=== PATIENT | female | born 1960 | race African-American/Black ===

== ENCOUNTER 2024-10-10 12:02 | Inpatient (IN) | payer MEDICAID, OTHER ==
[~2024-10-10] VITALS: Ht 172.7 cm; Wt 74.8 kg
[2024-10-10 12:12] VITALS: O2SAT 98
[2024-10-10] MEDS: SODIUM CHLORIDE 0.9% 1,000 ML IV ONE (12:58)
[2024-10-10 13:17] LABS: BASOPHILS % 0.2 % (0.0-2.0); EOSINOPHILS % 0.1 % (0.0-5.0); HEMATOCRIT. 32.7 % (36.0-48.0); HEMOGLOBIN. 10.9 g/dL (12.0-16.0); LYMPHOCYTES % 14.5 % (20.0-50.0); MEAN PLATELET VOLUME 8.8 fl (7.4-10.4); MONOCYTES % 7.9 % (2.0-8.0); NEUTROPHILS % 77.3 % (40.0-76.0); PLATELET 233 x1000/uL (130-400); RED BLOOD CELL COUNT 3.69 mill/uL (4.2-5.4); RED CELL DISTRIBUTION WIDTH 16.9 % (11.6-14.6)
[2024-10-10] MEDS: SODIUM CHLORIDE 0.9% (SEPSIS BOLUS) IV ONE (13:56)
[2024-10-10] MEDS: CEFTRIAXONE 1GM/50ML 50 ML IV SCH (13:56)
[2024-10-10] MEDS: AZITHROMYCIN 500MG/250ML 250 ML IV SCH (14:52)
[2024-10-10 15:39] LABS: CREATININE 1.9 mg/dL (0.6-1.0)
[2024-10-10 15:40] LABS: ETHANOL BLOOD < 10 mg/dL (<10); UREA NITROGEN BLOOD 31 mg/dL (9-23)
[2024-10-10 15:41] LABS: ASPARTATE AMINOTRANSFERASE 141 IU/L (<34)
[2024-10-10 15:42] LABS: BILIRUBIN TOTAL 5.8 mg/dL (0.1-1.0); PROTEIN TOTAL 7.0 g/dL (6.0-8.3)
[2024-10-10 15:45] LABS: TROPONIN I HIGH SENSITIVITY 1704 ng/L (3.0-34)
[2024-10-10] MEDS ORDERED: ASPIRIN 325MG EC TABLET PO NR (16:03)
[2024-10-10] MEDS ORDERED: ONDANSETRON HCL 4MG/2ML INJ IV PRN (16:30)
[2024-10-10] MEDS ORDERED: MORPHINE SULFATE 2 MG/ML INJ (NOT FOR IM USE) IV PRN (16:30)
[2024-10-10] MEDS ORDERED: MAGNESIUM/ALUMINUM HYDROXIDE/SIMETHICONE 30ML UDC PO PRN (16:30)
[2024-10-10] MEDS: SODIUM CHLORIDE 0.9% 1,000 ML IV SCH (16:59)
[2024-10-10] MEDS: ENOXAPARIN 80MG/0.8ML SYR SUBCUT NR (17:00)
[2024-10-10 17:23] VITALS: BP 156/108; PULSE 109; RESP 18; TEMP 36.1956
[2024-10-10] MEDS: VANCOMYCIN 1.5GM PMX (XELLIA) 300 ML IV NR (18:09)
[2024-10-10 20:00] VITALS: BP 135/93; PULSE 116; RESP 18; TEMP 36.5; O2SAT 100
[2024-10-10] MEDS ORDERED: ATORVASTATIN CALCIUM 40MG TABLET PO SCH (21:00)
[2024-10-10] MEDS: MVI, ADULT NO.1 10 ML, FOLIC ACID 1 MG, THIAMINE HCL 100 MG in SODIUM CHLORIDE 0.9% 1,0... IV SCH (21:59)
[2024-10-10] MEDS: PIPERACILLIN/TAZO 3.375G/50ML 50 ML IV SCH (21:59)
[2024-10-11] VITALS: BP 116/88; PULSE 112; RESP 18; TEMP 37; O2SAT 95
[2024-10-11 00:44] LABS: TROPONIN I HIGH SENSITIVITY 1722 ng/L (3.0-34)
[2024-10-11 04:00] VITALS: BP 108/84; PULSE 99; RESP 18; TEMP 36.4; O2SAT 97
[2024-10-11 06:46] LABS: INR 1.4
[2024-10-11 06:49] LABS: CREATININE 1.6 mg/dL (0.6-1.0); UREA NITROGEN BLOOD 30.0 mg/dL (9-23)
[2024-10-11 06:50] LABS: HEMATOCRIT. 27.5 % (36.0-48.0); HEMOGLOBIN. 9.2 g/dL (12.0-16.0); MEAN PLATELET VOLUME 9.3 fl (7.4-10.4); PLATELET 245 x1000/uL (130-400); RED BLOOD CELL COUNT 3.15 mill/uL (4.2-5.4); RED CELL DISTRIBUTION WIDTH 15.7 % (11.6-14.6)
[2024-10-11 07:02] LABS: TROPONIN I HIGH SENSITIVITY 1575.0 ng/L (3.0-34)
[2024-10-11 08:00] VITALS: BP 123/89; PULSE 97; RESP 17; TEMP 36.1; O2SAT 96
[2024-10-11] MEDS: ENOXAPARIN 80MG/0.8ML SYR SUBCUT SCH (08:30)
[2024-10-11] MEDS: PANTOPRAZOLE SODIUM 40 MG/VIAL IV SCH (08:30)
[2024-10-11] MEDS: ASPIRIN 81MG TABLET PO SCH (08:30)
[2024-10-11] MEDS: HYDROCODONE/ACETAMINOPHEN 5/325MG TABLET PO PRN (09:02)
[2024-10-11 12:00] VITALS: BP 99/69; PULSE 87; RESP 17; TEMP 36.1; O2SAT 99
[2024-10-11 16:00] VITALS: BP 116/82; PULSE 91; RESP 17; TEMP 36.4; O2SAT 97
[2024-10-11 16:52] LABS: LYMPHOCYTES % MANUAL 8.0 % (20.0-60.0); MONOCYTES % MANUAL 6.0 % (2.0-8.0); NEUTROPHILS % MANUAL 86.0 % (45.0-75.0); PLATELET ESTIMATE NORMAL
[2024-10-11 18:12] LABS: CLARITY URINE CLOUDY (CLEAR); COLOR URINE DARK YELLOW (YELLOW); GLUCOSE URINE NEGATIVE (NEGATIVE); KETONES URINE NEGATIVE (NEGATIVE); LEUKOCYTE ESTERASE URINE NEGATIVE (NEGATIVE); NITRITE URINE NEGATIVE (NEGATIVE); OCCULT BLOOD URINE 2+ (NEGATIVE); PH URINE 5.5 (4.5-8.0); PROTEIN URINE 2+ (NEGATIVE); SPECIFIC GRAVITY URINE 1.018 (1.005-1.030); UROBILINOGEN URINE 1.0 E.U./dL (0.2-1.0)
[2024-10-11 18:22] LABS: BACTERIA URINE 3+; SQUAMOUS EPITHELIAL CELL URINE FEW /lpf (RARE/1+); WBC URINE 0-2 /hpf (0-2)
[2024-10-11 18:23] LABS: FINE GRANULAR CASTS URINE 0-5 /lpf
[2024-10-11 18:34] LABS: *AMPHETAMINES SCREEN URINE NEGATIVE (NEGATIVE); *BARBITURATES SCREEN URINE NEGATIVE (NEGATIVE); *BENZODIAZEPINES SCREEN URINE NEGATIVE (NEGATIVE); *COCAINE SCREEN URINE NEGATIVE (NEGATIVE); CANNABINOID URINE SCREEN PRESUMPTIVE POSITIVE (NEGATIVE); ECSTASY MDMA SCREEN URINE NEGATIVE (NEGATIVE); METHADONE URINE SCREEN NEGATIVE (NEGATIVE); OPIATES URINE SCREEN PRESUMPTIVE POSITIVE (NEGATIVE); PHENCYCLIDINE URINE SCREEN NEGATIVE (NEGATIVE)
[2024-10-11 19:02] LABS: PHOSPHORUS 2.8 mg/dL (2.5-4.9)
[2024-10-11] MEDS: AZITHROMYCIN 500MG/250ML 250 ML IV SCH (19:36)
[2024-10-11] MEDS: VANCOMYCIN 750MG PMX (XELLIA) 150 ML IV SCH (19:36)
[2024-10-11 20:00] VITALS: BP 110/81; PULSE 87; RESP 20; TEMP 36.2; O2SAT 97
[2024-10-12] VITALS: BP 108/72; PULSE 79; RESP 20; TEMP 36.3; O2SAT 97
[2024-10-12] MEDS: POTASSIUM CHLORIDE 20MEQ TABLET SR PO SCH (01:45)
[2024-10-12 04:00] VITALS: BP 116/80; PULSE 102; RESP 19; TEMP 36.3; O2SAT 98
[2024-10-12 06:24] LABS: BASOPHILS % 0.2 % (0.0-2.0); EOSINOPHILS % 0.5 % (0.0-5.0); HEMATOCRIT. 25.6 % (36.0-48.0); HEMOGLOBIN. 8.8 g/dL (12.0-16.0); LYMPHOCYTES % 9.6 % (20.0-50.0); MEAN PLATELET VOLUME 9.5 fl (7.4-10.4); MONOCYTES % 6.3 % (2.0-8.0); NEUTROPHILS % 83.4 % (40.0-76.0); PLATELET 291 x1000/uL (130-400); RED BLOOD CELL COUNT 2.95 mill/uL (4.2-5.4); RED CELL DISTRIBUTION WIDTH 16.1 % (11.6-14.6)
[2024-10-12 06:31] LABS: CREATININE 1.4 mg/dL (0.6-1.0); UREA NITROGEN BLOOD 27.0 mg/dL (9-23)
[2024-10-12 10:07] VITALS: BP 125/86; PULSE 66; RESP 18; TEMP 36.3; O2SAT 100
[2024-10-12 12:00] VITALS: BP 121/89; PULSE 87; RESP 18; TEMP 36.6; O2SAT 100
[2024-10-12] MEDS: AZITHROMYCIN 500MG/250ML 250 ML IV SCH (13:47)
[2024-10-12] MEDS: VANCOMYCIN 1G PREMIX 200 ML IV SCH (13:47)
[2024-10-12] MEDS ORDERED: AZITHROMYCIN 500MG/250ML 250 ML IV SCH (15:00)
[2024-10-12 16:00] VITALS: BP 107/75; PULSE 90; RESP 18; TEMP 36.2; O2SAT 96
[2024-10-12 20:00] VITALS: BP 105/68; PULSE 82; RESP 19; TEMP 36.3; O2SAT 97
[2024-10-12] MEDS: ZOLPIDEM TARTRATE 5MG TABLET PO PRN (21:59)
[2024-10-12] MEDS ORDERED: NALOXONE HCL 0.4MG/ML VIAL IV PRN (23:30)
[2024-10-13] VITALS: BP 104/74; PULSE 80; RESP 18; TEMP 36.4; O2SAT 97
[2024-10-13 04:00] VITALS: BP 101/72; PULSE 82; RESP 18; TEMP 36.4; O2SAT 97
[2024-10-13 06:45] LABS: BASOPHILS % 0.2 % (0.0-2.0); EOSINOPHILS % 0.8 % (0.0-5.0); HEMATOCRIT. 24.1 % (36.0-48.0); HEMOGLOBIN. 8.1 g/dL (12.0-16.0); LYMPHOCYTES % 10.0 % (20.0-50.0); MEAN PLATELET VOLUME 8.6 fl (7.4-10.4); MONOCYTES % 5.9 % (2.0-8.0); NEUTROPHILS % 83.1 % (40.0-76.0); PLATELET 355 x1000/uL (130-400); RED BLOOD CELL COUNT 2.76 mill/uL (4.2-5.4); RED CELL DISTRIBUTION WIDTH 16.0 % (11.6-14.6)
[2024-10-13 08:00] VITALS: BP 130/75; PULSE 92; RESP 16; TEMP 36.4; O2SAT 95
[2024-10-13] MEDS: ACETAMINOPHEN 325MG TABLET PO PRN (10:28)
[2024-10-13 12:00] VITALS: BP 116/81; PULSE 89; RESP 16; TEMP 36.2; O2SAT 99
[2024-10-13] MEDS: MORPHINE SULFATE 4 MG/ML INJ (FOR IV/IM USE) IV PRN (14:33)
[2024-10-13 16:00] VITALS: BP 108/63; PULSE 93; RESP 17; TEMP 36.3; O2SAT 97
[2024-10-13 16:51] LABS: CREATININE 1.4 mg/dL (0.6-1.0)
[2024-10-13 16:52] LABS: UREA NITROGEN BLOOD 22.0 mg/dL (9-23)
[2024-10-13 20:00] VITALS: BP 105/71; PULSE 85; RESP 19; TEMP 36.2; O2SAT 97
[2024-10-14] VITALS: BP 113/75; PULSE 92; RESP 20; TEMP 36.3; O2SAT 97
[2024-10-14] MEDS: LORAZEPAM 2MG/ML UD SYRINGE IV PRN (01:16)
[2024-10-14 04:00] VITALS: BP 134/89; PULSE 97; RESP 21; TEMP 36.4; O2SAT 97
[2024-10-14 08:00] VITALS: BP 147/99; PULSE 108; RESP 19; TEMP 36.8; O2SAT 99
[2024-10-14] MEDS ORDERED: ASPIRIN 81MG TABLET PO SCH (09:00)
[2024-10-14 12:00] VITALS: BP 153/88; PULSE 112; RESP 19; TEMP 36.6; O2SAT 99
[2024-10-14 16:00] VITALS: BP 117/84; PULSE 98; RESP 18; TEMP 36.4; O2SAT 98
[2024-10-14] MEDS: AZITHROMYCIN 500MG/250ML 250 ML IV SCH (17:43)
[2024-10-14] MEDS: POTASSIUM CHLORIDE 20MEQ TABLET SR PO SCH (17:44)
[2024-10-14 20:00] VITALS: BP 121/82; PULSE 96; RESP 20; TEMP 36.6; O2SAT 98
[2024-10-14] MEDS: ATORVASTATIN CALCIUM 40MG TABLET PO SCH (20:47)
[2024-10-15] VITALS: BP 115/74; PULSE 97; RESP 19; TEMP 36.2; O2SAT 96
[2024-10-15] MEDS: CLONIDINE 0.1MG TABLET PO PRN (00:49)
[2024-10-15 04:00] VITALS: BP 100/72; PULSE 80; RESP 18; TEMP 36; O2SAT 97
[2024-10-15 08:00] VITALS: BP 127/89; PULSE 94; RESP 18; TEMP 35.6; TEMP 36.6; O2SAT 96
[2024-10-15] MEDS: LORAZEPAM 2MG/ML UD SYRINGE IV NR (08:01)
[2024-10-15] MEDS: FAMOTIDINE 20MG/2ML VIAL IV SCH (08:01)
[2024-10-15 12:00] VITALS: BP 143/103; PULSE 96; RESP 20; TEMP 36.5; O2SAT 98
[2024-10-15] MEDS: DIGOXIN 500MCG/2ML AMP IV SCH (12:57)
[2024-10-15] MEDS: DILTIAZEM HCL 30MG TABLET PO SCH (13:55)
[2024-10-15 16:00] VITALS: BP_SYST 119; BP_SYST 134; BP_DIAS 68; BP_DIAS 91; PULSE 102; PULSE 97; RESP 19; RESP 20; TEMP 36.4; TEMP 36.9; O2SAT 100
[2024-10-15] MEDS: QUETIAPINE FUMARATE 50MG TABLET PO SCH (18:47)
[2024-10-15 20:37] LABS: BASOPHILS % 0.4 % (0.0-2.0); EOSINOPHILS % 1.1 % (0.0-5.0); LYMPHOCYTES % 10.5 % (20.0-50.0); MEAN PLATELET VOLUME 7.9 fl (7.4-10.4); MONOCYTES % 7.0 % (2.0-8.0); NEUTROPHILS % 81.0 % (40.0-76.0); PLATELET 405 x1000/uL (130-400); RED BLOOD CELL COUNT 2.37 mill/uL (4.2-5.4); RED CELL DISTRIBUTION WIDTH 15.9 % (11.6-14.6)
[2024-10-15 20:40] LABS: HEMOGLOBIN. 7.0 g/dL (12.0-16.0)
[2024-10-15 20:41] LABS: HEMATOCRIT. 20.9 % (36.0-48.0)
[2024-10-15 20:55] LABS: CREATININE 1.0 mg/dL (0.6-1.0); UREA NITROGEN BLOOD 12 mg/dL (9-23)
[2024-10-15 23:10] VITALS: BP 127/91; PULSE 102; RESP 20; TEMP 36.5; O2SAT 100
[2024-10-16] VITALS (7 sets, daily range): BP systolic 116–170; BP diastolic 75–110; PULSE 94–111; RESP 17–70; TEMP 36.28068–36.6; O2SAT 18–100
[2024-10-16 11:31] LABS: PLATELET 392 x1000/uL (130-400); RED BLOOD CELL COUNT 2.95 mill/uL (4.2-5.4); RED CELL DISTRIBUTION WIDTH 16.3 % (11.6-14.6)
[2024-10-17] VITALS: BP 138/87; PULSE 106; RESP 19; TEMP 36.3; O2SAT 97
[2024-10-17 04:00] VITALS: BP 117/81; PULSE 103; RESP 19; TEMP 36.3; O2SAT 100
[2024-10-17 08:00] VITALS: BP 132/96; PULSE 105; RESP 20; TEMP 36.5; O2SAT 99
[2024-10-17 08:12] LABS: ALPHA FETOPROTEIN TUMOR MARKER < 1.8 ng/mL (0.0-9.2); CANCER ANTIGEN 125 27.2 U/mL (0.0-38.1); CARCINOEMBRYONIC AG - SEND OUT 4.2 ng/mL (0.0-4.7)
[2024-10-17 12:00] VITALS: BP 161/108; PULSE 99; RESP 19; TEMP 36.7; O2SAT 99
[2024-10-17 12:33] LABS: CREATININE 0.9 mg/dL (0.6-1.0); UREA NITROGEN BLOOD 12 mg/dL (9-23)
[2024-10-17 16:00] VITALS: BP 157/105; PULSE 103; RESP 20; TEMP 37.1; O2SAT 100
[2024-10-17 20:00] VITALS: BP 146/98; PULSE 107; RESP 19; TEMP 36.4; O2SAT 100
[2024-10-18] VITALS: BP 129/83; PULSE 90; RESP 19; TEMP 36.6; O2SAT 96
[2024-10-18 04:00] VITALS: BP 154/102; PULSE 97; RESP 19; TEMP 36.4; O2SAT 96
[2024-10-18 08:00] VITALS: BP 141/96; PULSE 96; RESP 18; TEMP 36.2; O2SAT 98
[2024-10-18 12:00] VITALS: BP 167/110; PULSE 96; RESP 18; TEMP 36.3; O2SAT 98
[2024-10-18 16:00] VITALS: BP 159/98; PULSE 96; RESP 18; TEMP 36.4; O2SAT 98
[2024-10-18 20:00] VITALS: BP 132/82; PULSE 103; RESP 20; TEMP 36.3; O2SAT 92
[2024-10-19] VITALS: BP_SYST 120; BP_SYST 131; BP_DIAS 82; BP_DIAS 85; PULSE 105; PULSE 93; RESP 19; RESP 20; TEMP 36.2; TEMP 36.3; O2SAT 97
[2024-10-19 04:00] VITALS: BP 122/65; PULSE 104; RESP 20; TEMP 36.3; O2SAT 96
[2024-10-19 08:00] VITALS: BP_SYST 142; BP_SYST 152; BP_DIAS 82; BP_DIAS 96; PULSE 62; PULSE 99; RESP 18; TEMP 36.5; TEMP 36.7; O2SAT 98
[2024-10-19 12:00] VITALS: BP_SYST 139; BP_SYST 149; BP_DIAS 79; BP_DIAS 90; PULSE 65; PULSE 95; RESP 18; TEMP 36.6; O2SAT 98
[2024-10-19 16:13] LABS: CREATININE 1.0 mg/dL (0.6-1.0)
[2024-10-19 16:14] LABS: UREA NITROGEN BLOOD 10 mg/dL (9-23)
[2024-10-19 20:00] VITALS: BP 152/101; PULSE 108; RESP 18; TEMP 36.6; O2SAT 97
[2024-10-20 04:00] VITALS: BP 157/105; PULSE 100; RESP 18; TEMP 36.6; O2SAT 97
[2024-10-20 12:00] VITALS: BP 142/35; PULSE 96; RESP 18; TEMP 36.4; O2SAT 96
[2024-10-20 16:00] VITALS: BP 146/89; PULSE 99; RESP 18; TEMP 36.5; O2SAT 97
[2024-10-20 20:00] VITALS: BP 128/80; PULSE 104; RESP 18; TEMP 36.4; O2SAT 98
[2024-10-21] VITALS: BP 131/88; PULSE 108; RESP 18; TEMP 36.7; O2SAT 99
[2024-10-21 04:00] VITALS: BP 117/80; PULSE 105; RESP 18; TEMP 36.6; O2SAT 100
[2024-10-21 08:00] VITALS: BP 143/98; PULSE 103; RESP 18; TEMP 36.4; O2SAT 99
[2024-10-21 12:00] VITALS: BP 154/100; PULSE 104; RESP 18; TEMP 36.6; O2SAT 99
[2024-10-21 16:00] VITALS: BP 149/96; PULSE 84; RESP 18; TEMP 36.6; O2SAT 98
[2024-10-21 20:00] VITALS: BP 145/90; PULSE 92; RESP 19; TEMP 36.4; O2SAT 99
[2024-10-22] VITALS: BP 139/85; PULSE 82; RESP 17; TEMP 36.2; O2SAT 99
[2024-10-22 04:00] VITALS: BP 152/92; PULSE 96; RESP 18; TEMP 36.2; O2SAT 98
[2024-10-22 08:00] VITALS: BP 152/100; PULSE 101; RESP 18; TEMP 36.4; O2SAT 100
[2024-10-22 12:00] VITALS: BP 170/110; PULSE 109; RESP 16; TEMP 36.3; O2SAT 97
[2024-10-22 16:00] VITALS: BP 139/92; PULSE 105; RESP 16; TEMP 36.6; O2SAT 98
[2024-10-22] MEDS: POTASSIUM CHLORIDE 20MEQ/PACKET PO NR (18:35)
[2024-10-22 20:00] VITALS: BP 133/98; PULSE 122; RESP 18; TEMP 36.6; O2SAT 95
[2024-10-23] VITALS: BP 105/78; PULSE 107; RESP 20; TEMP 36.2; O2SAT 96
[2024-10-23 04:00] VITALS: BP 110/69; PULSE 104; RESP 20; TEMP 37.2; O2SAT 97
[2024-10-23 08:00] VITALS: BP 125/92; PULSE 108; RESP 20; TEMP 36.2; O2SAT 98
[2024-10-23] MEDS: ENOXAPARIN 40MG/0.4ML SYR SUBCUT SCH (09:00)
[2024-10-23 12:00] VITALS: BP 155/99; PULSE 111; RESP 22; TEMP 36.3; O2SAT 99
[2024-10-23] MEDS: SODIUM CHLORIDE 0.9% 1,000 ML IV SCH (13:09)
[2024-10-23 16:00] VITALS: BP 145/90; PULSE 105; RESP 19; TEMP 35.9; O2SAT 98
[2024-10-23 20:00] VITALS: BP 132/79; PULSE 105; RESP 18; TEMP 37.3; O2SAT 100
[2024-10-23] MEDS: HYDROCODONE/ACETAMINOPHEN 5/325MG TABLET PO PRN (20:28)
[2024-10-23] MEDS ORDERED: NALOXONE HCL 0.4MG/ML VIAL IV PRN (20:30)
[2024-10-23] MEDS: PIPERACILLIN/TAZO 3.375G/50ML 50 ML IV SCH (21:09)
[2024-10-24] VITALS: BP_SYST 115; PULSE 100; RESP 18; TEMP 36.2; O2SAT 99
[2024-10-24 04:00] VITALS: BP 119/86; PULSE 113; RESP 18; TEMP 37; O2SAT 99
[2024-10-24 08:00] VITALS: BP 137/80; PULSE 104; RESP 22; TEMP 36.5; O2SAT 100
[2024-10-24 12:00] VITALS: BP 128/76; PULSE 106; RESP 20; TEMP 36.4; O2SAT 100
[2024-10-24 16:00] VITALS: BP 134/92; PULSE 113; RESP 22; TEMP 36.4; O2SAT 99
[2024-10-24 20:00] VITALS: BP 143/90; PULSE 102; RESP 20; TEMP 36.3; O2SAT 96
[2024-10-25] VITALS: BP 128/85; PULSE 109; RESP 19; TEMP 36.5; O2SAT 98
[2024-10-25 04:00] VITALS: BP 137/87; PULSE 106; RESP 18; TEMP 36.7; O2SAT 97
[2024-10-25 08:00] VITALS: BP 132/78; PULSE 107; RESP 19; TEMP 37.2; O2SAT 99
[2024-10-25] MEDS: LACTULOSE 20G/30ML UDC PO SCH (10:30)
[2024-10-25 12:00] VITALS: BP 121/86; PULSE 104; RESP 23; TEMP 36.7; O2SAT 100
[2024-10-25 16:00] VITALS: BP 126/86; PULSE 107; RESP 20; TEMP 36.6; O2SAT 98
[2024-10-25 20:00] VITALS: BP 133/93; PULSE 99; RESP 18; TEMP 36.7; O2SAT 97
[2024-10-26] VITALS: BP 130/90; PULSE 97; RESP 18; TEMP 36.8; O2SAT 93
[2024-10-26 04:00] VITALS: BP 128/80; PULSE 109; RESP 18; TEMP 37.1; O2SAT 99
[2024-10-26 08:00] VITALS: BP 155/95; PULSE 83; RESP 17; TEMP 35.9; O2SAT 96
[2024-10-26 12:00] VITALS: BP 139/98; PULSE 106; RESP 17; TEMP 36.2; O2SAT 98
[2024-10-26 16:00] VITALS: BP 120/71; PULSE 106; RESP 17; TEMP 36.3; O2SAT 100
[2024-10-27] VITALS: BP 119/70; PULSE 102; RESP 19; TEMP 36.9; O2SAT 100
[2024-10-27 04:00] VITALS: BP 122/79; PULSE 111; RESP 19; TEMP 36.9; O2SAT 96
[2024-10-27 08:00] VITALS: BP 130/78; PULSE 112; RESP 17; TEMP 36.3; O2SAT 97
[2024-10-27 12:00] VITALS: BP_SYST 130; BP_SYST 155; BP_DIAS 104; BP_DIAS 78; PULSE 110; PULSE 98; RESP 16; RESP 18; TEMP 36.1; TEMP 36.4; O2SAT 96; O2SAT 97
[2024-10-27 16:00] VITALS: BP 139/96; PULSE 107; RESP 17; TEMP 36.7; O2SAT 98
[2024-10-27 20:00] VITALS: BP 144/95; PULSE 105; RESP 18; TEMP 36.3; O2SAT 97
[2024-10-28] VITALS (7 sets, daily range): BP systolic 123–148; BP diastolic 85–99; PULSE 104–115; RESP 17–18; TEMP 36.3–36.6; O2SAT 97–98
[2024-10-28 08:41] LABS: BASOPHILS % 0.9 % (0.0-2.0); EOSINOPHILS % 3.7 % (0.0-5.0); HEMATOCRIT. 26.5 % (36.0-48.0); HEMOGLOBIN. 8.7 g/dL (12.0-16.0); LYMPHOCYTES % 17.8 % (20.0-50.0); MEAN PLATELET VOLUME 7.1 fl (7.4-10.4); MONOCYTES % 9.4 % (2.0-8.0); NEUTROPHILS % 68.2 % (40.0-76.0); PLATELET 542 x1000/uL (130-400); RED BLOOD CELL COUNT 3.03 mill/uL (4.2-5.4); RED CELL DISTRIBUTION WIDTH 15.8 % (11.6-14.6)
[2024-10-28 08:54] LABS: CREATININE 1.0 mg/dL (0.6-1.0); UREA NITROGEN BLOOD 15 mg/dL (9-23)
[2024-10-28 08:56] LABS: ASPARTATE AMINOTRANSFERASE 23 IU/L (<34); BILIRUBIN TOTAL 0.8 mg/dL (0.1-1.0); PROTEIN TOTAL 8.6 g/dL (6.0-8.3)
[2024-10-28 21:06] LABS: CLARITY URINE CLEAR (CLEAR); COLOR URINE YELLOW (YELLOW); GLUCOSE URINE NEGATIVE (NEGATIVE); KETONES URINE NEGATIVE (NEGATIVE); LEUKOCYTE ESTERASE URINE 1+ (NEGATIVE); NITRITE URINE NEGATIVE (NEGATIVE); OCCULT BLOOD URINE NEGATIVE (NEGATIVE); PH URINE 5.5 (4.5-8.0); PROTEIN URINE 1+ (NEGATIVE); SPECIFIC GRAVITY URINE 1.017 (1.005-1.030); UROBILINOGEN URINE 1.0 E.U./dL (0.2-1.0)
[2024-10-28 21:22] LABS: BACTERIA URINE TRACE; RBC URINE 0-2 /hpf (0-2); SQUAMOUS EPITHELIAL CELL URINE FEW /lpf (RARE/1+); YEAST URINE 1+
[2024-10-29] VITALS: BP 127/88; PULSE 119; RESP 18; TEMP 36.3; O2SAT 96
[2024-10-29 04:00] VITALS: BP 137/98; PULSE 99; RESP 18; TEMP 36.3; O2SAT 97
[2024-10-29 08:00] VITALS: BP 135/94; PULSE 102; RESP 16; TEMP 36.6; O2SAT 96
[2024-10-29 12:00] VITALS: BP 144/99; PULSE 110; RESP 17; TEMP 36.4; O2SAT 97
[2024-10-29 16:00] VITALS: BP 143/57; PULSE 112; RESP 16; TEMP 36.6; O2SAT 98
[2024-10-29] MEDS: HYDROCODONE/ACETAMINOPHEN 5/325MG TABLET PO PRN (16:03)
[2024-10-29 20:00] VITALS: BP 142/97; PULSE 103; RESP 18; TEMP 36.8; O2SAT 100
[2024-10-30] VITALS: BP 127/89; PULSE 99; RESP 18; TEMP 36.3; O2SAT 97
[2024-10-30 04:00] VITALS: BP 139/96; PULSE 93; RESP 18; TEMP 37.1; O2SAT 100
[2024-10-30 08:00] VITALS: BP 150/102; PULSE 97; RESP 19; TEMP 36.4; O2SAT 99
[2024-10-30 16:00] VITALS: BP 138/96; PULSE 118; RESP 19; TEMP 36.3; O2SAT 98
[2024-10-30 20:00] VITALS: PULSE 108; RESP 18; TEMP 36.7; O2SAT 98
[2024-10-31] VITALS: BP 105/72; PULSE 60; RESP 18; TEMP 36.3; O2SAT 96
[2024-10-31 04:00] VITALS: BP 113/89; PULSE 103; RESP 19; TEMP 36.3; O2SAT 99
[2024-10-31 08:00] VITALS: BP_SYST 132; BP_DIAS 85; BP_DIAS 90; PULSE 102; PULSE 104; RESP 18; TEMP 36.2; O2SAT 100; O2SAT 97
[2024-10-31 12:00] VITALS: BP_SYST 132; BP_DIAS 85; BP_DIAS 90; PULSE 102; PULSE 104; RESP 18; TEMP 36.2; O2SAT 100; O2SAT 97
[2024-10-31 16:00] VITALS: BP 120/81; PULSE 100; RESP 17; TEMP 36.1
[2024-10-31] MEDS ORDERED: NALOXONE HCL 0.4MG/ML VIAL IV PRN (16:00)
[2024-10-31 20:00] VITALS: BP 144/103; PULSE 101; RESP 18; TEMP 37.1; O2SAT 96
[2024-11-01] VITALS: BP 143/93; PULSE 102; RESP 18; TEMP 36.7; O2SAT 98
[2024-11-01 04:00] VITALS: BP 125/90; PULSE 102; RESP 19; TEMP 36.8; O2SAT 100
[2024-11-01 08:00] VITALS: BP 110/77; PULSE 93; RESP 18; TEMP 36.1; O2SAT 98
[2024-11-01 12:00] VITALS: BP 127/82; PULSE 95; RESP 18; TEMP 36.2; O2SAT 97
[2024-11-01] MEDS: ZIPRASIDONE MESYLATE 20MG/VIAL IM PRN (14:34)
[2024-11-01 16:00] VITALS: BP 145/99; PULSE 103; RESP 20; TEMP 36.4; O2SAT 100
[2024-11-01 20:00] VITALS: BP 138/96; PULSE 103; RESP 18; TEMP 35.9; O2SAT 98
[2024-11-02] VITALS: BP 136/90; PULSE 109; RESP 17; TEMP 36.3; O2SAT 96
[2024-11-02 04:00] VITALS: BP 121/85; PULSE 116; RESP 17; TEMP 36.3; O2SAT 95
[2024-11-02 08:00] VITALS: BP 130/83; PULSE 104; RESP 17; TEMP 36; O2SAT 99
[2024-11-02 12:00] VITALS: BP 117/95; PULSE 70; RESP 17; TEMP 36.3; O2SAT 100
[2024-11-02 16:00] VITALS: BP 137/78; PULSE 104; RESP 17; TEMP 36.2; O2SAT 100
[2024-11-02 20:00] VITALS: BP 143/99; PULSE 104; RESP 19; TEMP 37.1; O2SAT 100
[2024-11-03] VITALS: BP 117/75; PULSE 103; RESP 19; TEMP 36.7; O2SAT 96
[2024-11-03 04:00] VITALS: BP 123/82; PULSE 101; RESP 20; TEMP 36.4; O2SAT 97
[2024-11-03 08:00] VITALS: BP 129/91; PULSE 98; RESP 16; TEMP 36.6; O2SAT 97
[2024-11-03 12:00] VITALS: BP 135/85; PULSE 99; RESP 17; TEMP 36.7; O2SAT 97
[2024-11-03 12:05] LABS: BASOPHILS % 1.2 % (0.0-2.0); EOSINOPHILS % 3.4 % (0.0-5.0); HEMATOCRIT. 26.1 % (36.0-48.0); HEMOGLOBIN. 8.6 g/dL (12.0-16.0); LYMPHOCYTES % 15.0 % (20.0-50.0); MEAN PLATELET VOLUME 7.1 fl (7.4-10.4); MONOCYTES % 8.5 % (2.0-8.0); NEUTROPHILS % 71.9 % (40.0-76.0); PLATELET 541 x1000/uL (130-400); RED BLOOD CELL COUNT 3.01 mill/uL (4.2-5.4); RED CELL DISTRIBUTION WIDTH 15.4 % (11.6-14.6)
[2024-11-03 12:19] LABS: CREATININE 0.8 mg/dL (0.6-1.0); UREA NITROGEN BLOOD 13 mg/dL (9-23)
[2024-11-03 16:00] VITALS: BP 134/86; PULSE 103; RESP 17; TEMP 36.4; O2SAT 97
[2024-11-03 20:00] VITALS: BP 144/90; PULSE 109; RESP 17; TEMP 36.3; O2SAT 100
[2024-11-04] VITALS: BP 144/90; PULSE 109; RESP 17; TEMP 36.3; O2SAT 100
[2024-11-04 04:00] VITALS: BP 131/83; PULSE 91; RESP 17; TEMP 36.3; O2SAT 100
[2024-11-04 08:00] VITALS: BP 130/80; PULSE 90; PULSE 94; RESP 16; RESP 18; TEMP 36.2; TEMP 36.3; O2SAT 98
[2024-11-04 12:00] VITALS: BP 141/96; PULSE 94; RESP 16; TEMP 36.2; O2SAT 98
[2024-11-04 16:00] VITALS: BP 120/84; PULSE 93; RESP 17; TEMP 36.4; O2SAT 98
[2024-11-04 20:00] VITALS: BP 133/89; PULSE 101; RESP 18; TEMP 36.9; O2SAT 96
[2024-11-05] VITALS: BP 118/85; PULSE 89; RESP 18; TEMP 36.7; O2SAT 100
[2024-11-05 04:00] VITALS: BP 118/85; PULSE 89; RESP 18; TEMP 36.7; O2SAT 100
[2024-11-05 08:00] VITALS: BP 121/81; PULSE 94; RESP 18; TEMP 36; O2SAT 100
[2024-11-05 12:00] VITALS: BP 121/83; PULSE 96; RESP 18; TEMP 36.6; O2SAT 100
[2024-11-05 16:00] VITALS: BP 132/91; PULSE 98; RESP 18; TEMP 36.2; O2SAT 100
[2024-11-05 20:00] VITALS: BP 132/81; PULSE 100; RESP 18; TEMP 36.5; O2SAT 100
[2024-11-06 04:00] VITALS: BP 131/73; PULSE 91; RESP 18; TEMP 36.3; O2SAT 100
[2024-11-06 08:00] VITALS: BP 118/66; PULSE 63; RESP 19; TEMP 36.4; O2SAT 96
[2024-11-06] MEDS: ENOXAPARIN 40MG/0.4ML SYR SUBCUT SCH (11:24)
[2024-11-06 12:00] VITALS: BP 126/91; PULSE 105; RESP 18; TEMP 36.4; O2SAT 100
[2024-11-06 15:40] VITALS: BP 128/86; PULSE 102; RESP 18; TEMP 36.4; O2SAT 95
[2024-11-06] MEDS: IOHEXOL-300 100 ML BOTTLE ONE (19:10)
[2024-11-06] MEDS: SODIUM CHLORIDE 0.9% 1,000 ML IV ONE (19:10)
[2024-11-06 20:00] VITALS: BP 135/81; PULSE 113; RESP 18; TEMP 36.6; O2SAT 100
[2024-11-07] VITALS: BP 121/73; PULSE 109; RESP 18; TEMP 37; O2SAT 100
[2024-11-07 04:00] VITALS: BP 119/74; PULSE 102; RESP 18; TEMP 36.9; O2SAT 98
[2024-11-07 08:00] VITALS: BP 114/74; PULSE 89; RESP 17; TEMP 36.5; O2SAT 99
[2024-11-07 12:00] VITALS: BP 112/73; PULSE 96; RESP 17; TEMP 35.6; O2SAT 100
[2024-11-07 13:12] LABS: BASOPHILS % 0.9 % (0.0-2.0); EOSINOPHILS % 2.4 % (0.0-5.0); HEMATOCRIT. 28.2 % (36.0-48.0); HEMOGLOBIN. 9.2 g/dL (12.0-16.0); LYMPHOCYTES % 16.1 % (20.0-50.0); MEAN PLATELET VOLUME 6.8 fl (7.4-10.4); MONOCYTES % 9.7 % (2.0-8.0); NEUTROPHILS % 70.9 % (40.0-76.0); PLATELET 434 x1000/uL (130-400); RED BLOOD CELL COUNT 3.24 mill/uL (4.2-5.4); RED CELL DISTRIBUTION WIDTH 15.7 % (11.6-14.6)
[2024-11-07 13:24] LABS: CREATININE 0.8 mg/dL (0.6-1.0); UREA NITROGEN BLOOD 14 mg/dL (9-23)
[2024-11-07 16:00] VITALS: BP 121/80; PULSE 98; RESP 17; TEMP 35.8; O2SAT 100
[2024-11-07] MEDS: MELOXICAM 7.5MG TABLET PO SCH (18:14)
[2024-11-07 20:00] VITALS: BP 130/85; PULSE 75; RESP 18; TEMP 37.8; O2SAT 100
[2024-11-07] MEDS: FAMOTIDINE 20MG/2ML VIAL IV SCH (21:47)
[2024-11-08] VITALS: BP 122/76; PULSE 89; RESP 18; TEMP 35.8; O2SAT 100
[2024-11-08 04:00] VITALS: BP 142/83; PULSE 91; RESP 18; TEMP 36.8; O2SAT 95
[2024-11-08 06:08] LABS: CREATININE 0.7 mg/dL (0.6-1.0)
[2024-11-08 06:09] LABS: UREA NITROGEN BLOOD 11 mg/dL (9-23)
[2024-11-08 06:15] LABS: BASOPHILS % 0.7 % (0.0-2.0); EOSINOPHILS % 3.1 % (0.0-5.0); HEMATOCRIT. 27.7 % (36.0-48.0); HEMOGLOBIN. 9.0 g/dL (12.0-16.0); LYMPHOCYTES % 17.0 % (20.0-50.0); MEAN PLATELET VOLUME 7.6 fl (7.4-10.4); MONOCYTES % 9.5 % (2.0-8.0); NEUTROPHILS % 69.7 % (40.0-76.0); PLATELET 418 x1000/uL (130-400); RED BLOOD CELL COUNT 3.15 mill/uL (4.2-5.4); RED CELL DISTRIBUTION WIDTH 15.8 % (11.6-14.6)
[2024-11-08 08:00] VITALS: BP 123/76; PULSE 93; RESP 18; TEMP 35.6; O2SAT 100
[2024-11-08] MEDS: POTASSIUM CHLORIDE 20MEQ TABLET SR PO NR (14:06)
[2024-11-08 16:00] VITALS: BP 126/88; PULSE 100; RESP 18; TEMP 36.4; O2SAT 100
[2024-11-08 20:00] VITALS: BP 139/89; PULSE 101; RESP 19; TEMP 36.4; O2SAT 99
[2024-11-09] VITALS: BP 123/86; PULSE 95; RESP 18; TEMP 36.3; O2SAT 98
[2024-11-09 04:00] VITALS: BP 140/92; PULSE 100; RESP 19; TEMP 36.4; O2SAT 98
[2024-11-09 08:00] VITALS: BP 127/77; PULSE 99; RESP 19; TEMP 36.4; O2SAT 99
[2024-11-09] MEDS ORDERED: LIDOCAINE HCL 1% 10 MG/ML 10ML VIAL ONE (10:32)
[2024-11-09 10:44] LABS: C REACTIVE PROTEIN HIGH SENS 85.34 mg/l (<1.00)
[2024-11-09 16:00] VITALS: BP_SYST 128; PULSE 104; RESP 18; TEMP 36.1; O2SAT 99
[2024-11-09 20:00] VITALS: BP 136/92; PULSE 109; RESP 19; TEMP 36.7; O2SAT 97
[2024-11-09] MEDS: POTASSIUM CHLORIDE 20MEQ TABLET SR PO SCH (22:28)
[2024-11-10] VITALS: BP 139/69; PULSE 66; RESP 19; TEMP 36.5; O2SAT 97
[2024-11-10 04:00] VITALS: BP 184/81; PULSE 110; RESP 20; TEMP 36.4; O2SAT 96
[2024-11-10 08:00] VITALS: BP 135/74; PULSE 105; RESP 17; TEMP 36.3; O2SAT 98
[2024-11-10 10:57] LABS: BASOPHILS % 1.1 % (0.0-2.0); EOSINOPHILS % 3.4 % (0.0-5.0); HEMATOCRIT. 25.1 % (36.0-48.0); HEMOGLOBIN. 8.2 g/dL (12.0-16.0); LYMPHOCYTES % 16.5 % (20.0-50.0); MEAN PLATELET VOLUME 7.9 fl (7.4-10.4); MONOCYTES % 7.6 % (2.0-8.0); NEUTROPHILS % 71.4 % (40.0-76.0); PLATELET 444 x1000/uL (130-400); RED BLOOD CELL COUNT 2.84 mill/uL (4.2-5.4); RED CELL DISTRIBUTION WIDTH 16.2 % (11.6-14.6)
[2024-11-10 11:26] LABS: CREATININE 0.8 mg/dL (0.6-1.0); UREA NITROGEN BLOOD 10 mg/dL (9-23)
[2024-11-10 11:29] LABS: PHOSPHORUS 2.3 mg/dL (2.5-4.9)
[2024-11-10 11:38] LABS: INR 1.2
[2024-11-10 12:00] VITALS: BP 115/67; PULSE 104; RESP 16; TEMP 36.6; O2SAT 98
[2024-11-10] MEDS: POTASSIUM PHOSPHATE 20 MMOL in DEXT 5% WATER 243.3333 ML IV SCH (14:51)
[2024-11-10 16:00] VITALS: BP 125/82; PULSE 114; RESP 17; TEMP 36.8; O2SAT 97
[2024-11-10 20:00] VITALS: BP 144/84; PULSE 107; RESP 18; TEMP 35.6; O2SAT 97
[2024-11-11] VITALS (7 sets, daily range): BP systolic 120–130; BP diastolic 77–93; PULSE 45–115; RESP 18–20; TEMP 36.1–36.5; O2SAT 87–100
[2024-11-11] MEDS: ZIPRASIDONE MESYLATE 20MG/VIAL IM PRN (22:23)
[2024-11-12] VITALS: BP 120/80; PULSE 51; RESP 18; TEMP 36.4; O2SAT 90
[2024-11-12 04:00] VITALS: BP 119/79; PULSE 55; RESP 18; TEMP 36.3; O2SAT 95
[2024-11-12 08:00] VITALS: BP 130/76; PULSE 108; RESP 18; TEMP 36.5; O2SAT 98
[2024-11-12 10:17] LABS: BASOPHILS % 1.1 % (0.0-2.0); EOSINOPHILS % 4.7 % (0.0-5.0); LYMPHOCYTES % 19.8 % (20.0-50.0); MEAN PLATELET VOLUME 7.7 fl (7.4-10.4); MONOCYTES % 8.7 % (2.0-8.0); NEUTROPHILS % 65.7 % (40.0-76.0); PLATELET 335 x1000/uL (130-400); RED BLOOD CELL COUNT 3.37 mill/uL (4.2-5.4); RED CELL DISTRIBUTION WIDTH 16.2 % (11.6-14.6)
[2024-11-12 10:32] LABS: HEMATOCRIT. 29.5 % (36.0-48.0); HEMOGLOBIN. 9.6 g/dL (12.0-16.0)
[2024-11-12 10:33] LABS: CREATININE 0.9 mg/dL (0.6-1.0)
[2024-11-12 10:34] LABS: UREA NITROGEN BLOOD 14 mg/dL (9-23)
[2024-11-12 10:36] LABS: PHOSPHORUS 2.8 mg/dL (2.5-4.9)
[2024-11-12 11:37] VITALS: BP 115/76; PULSE 104; RESP 17; TEMP 36.7; O2SAT 100
[2024-11-12 15:50] VITALS: BP 110/59; PULSE 113; RESP 17; TEMP 36.2; O2SAT 99
[2024-11-12 20:00] VITALS: BP 107/77; PULSE 104; RESP 18; TEMP 36.6; O2SAT 98
[2024-11-12] MEDS: ENOXAPARIN 40MG/0.4ML SYR SUBCUT SCH (20:13)
[2024-11-13] VITALS: BP 96/54; PULSE 111; RESP 18; TEMP 36.7; O2SAT 97
[2024-11-13 04:00] VITALS: BP 104/52; PULSE 102; RESP 18; TEMP 36.2; O2SAT 98
[2024-11-13 08:00] VITALS: BP 122/56; PULSE 112; RESP 19; TEMP 36; O2SAT 100
[2024-11-13 11:05] LABS: BASOPHILS % 1.1 % (0.0-2.0); EOSINOPHILS % 4.4 % (0.0-5.0); HEMATOCRIT. 28.2 % (36.0-48.0); HEMOGLOBIN. 9.3 g/dL (12.0-16.0); LYMPHOCYTES % 16.8 % (20.0-50.0); MEAN PLATELET VOLUME 7.9 fl (7.4-10.4); MONOCYTES % 9.4 % (2.0-8.0); NEUTROPHILS % 68.3 % (40.0-76.0); PLATELET 326 x1000/uL (130-400); RED BLOOD CELL COUNT 3.23 mill/uL (4.2-5.4); RED CELL DISTRIBUTION WIDTH 15.9 % (11.6-14.6)
[2024-11-13 11:24] LABS: CREATININE 0.8 mg/dL (0.6-1.0)
[2024-11-13 11:25] LABS: UREA NITROGEN BLOOD 14 mg/dL (9-23)
[2024-11-13 11:27] LABS: PHOSPHORUS 2.5 mg/dL (2.5-4.9)
[2024-11-13 12:00] VITALS: BP 118/76; PULSE 98; RESP 18; TEMP 36.4; O2SAT 100
[2024-11-13 16:00] VITALS: BP 140/89; PULSE 102; RESP 18; TEMP 36.4; O2SAT 100
[2024-11-13 20:00] VITALS: BP 125/82; PULSE 113; RESP 18; TEMP 35.9; O2SAT 99
[2024-11-14] VITALS: BP 111/74; PULSE 111; RESP 18; TEMP 36.4; O2SAT 99
[2024-11-14 04:00] VITALS: BP 90/69; PULSE 98; RESP 18; TEMP 36.3; O2SAT 97
[2024-11-14 08:00] VITALS: BP 100/69; PULSE 102; RESP 20; TEMP 36.3; O2SAT 98
[2024-11-14 12:00] VITALS: BP 123/78; PULSE 105; RESP 20; TEMP 36.3; O2SAT 98
[2024-11-14 16:00] VITALS: BP 126/70; PULSE 112; RESP 20; TEMP 36.3; O2SAT 98
[2024-11-14 20:00] VITALS: BP 116/65; PULSE 100; RESP 19; TEMP 36.1; O2SAT 99
[2024-11-14] MEDS: DILTIAZEM HCL 120MG CAPSULE ER 24HR PO SCH (23:00)
[2024-11-15] VITALS: BP 106/67; PULSE 98; RESP 19; TEMP 36.7; O2SAT 98
[2024-11-15] MEDS: ACETAMINOPHEN 325MG TABLET PO PRN (00:22)
[2024-11-15 04:00] VITALS: BP 121/62; PULSE 98; RESP 19; TEMP 36.3; O2SAT 98
[2024-11-15] MEDS: HYDROCODONE/ACETAMINOPHEN 5/325MG TABLET PO PRN (05:20)
[2024-11-15 08:00] VITALS: BP 118/78; PULSE 106; RESP 21; TEMP 36.3; O2SAT 99
[2024-11-15] MEDS ORDERED: DILT120C88 PO (10:36)
[2024-11-15] MEDS ORDERED: LACT-390 PO (10:36)
[2024-11-15] MEDS ORDERED: ENOX40DI8 SUBCUT (10:36)
[2024-11-15] MEDS ORDERED: HYDR-4001 PO (10:36)
[2024-11-15 12:00] VITALS: BP 119/81; PULSE 104; RESP 21; TEMP 36.4; O2SAT 98
[2024-11-15 16:00] VITALS: BP 100/67; PULSE 104; RESP 20; TEMP 36.4; O2SAT 98
[2024-11-15 20:00] VITALS: BP 102/53; PULSE 107; RESP 16; TEMP 36.9; O2SAT 100
[2024-11-16] VITALS (8 sets, daily range): BP systolic 98–133; BP diastolic 62–91; PULSE 87–112; RESP 16–18; TEMP 36.1–36.4; O2SAT 94–100
== END 2024-11-16 20:26 | disposition home health service (06) | DRG 720 ==
LOC: ER 12:02 → 6WST 13:40 → EDBEDREQTM 13:42 → EDBEDREQ 13:42 → EDBEDREQSVC 13:42 → ENRESERV 15:44 → 6EST 10-12 12:15 → 6WST 10-12 12:17 → 7EST 10-22 10:06
PROVIDERS: ADMIT Internal Medicine; ATTEND Internal Medicine
PROC: 30233N1 Transfusion of Nonautologous Red Blood Cells into Peripheral Vein, Percutaneous Approach (ICD-10-PCS; principal; 2024-10-16)
DX: A40.8 Other streptococcal sepsis (principal); N17.0 Acute kidney failure with tubular necrosis; G92.8 Other toxic encephalopathy; M62.82 Rhabdomyolysis; E83.39 Other disorders of phosphorus metabolism; E87.20 Acidosis, unspecified; D64.9 Anemia, unspecified; D49.7 Neoplasm of unspecified behavior of endocrine glands and other parts of nervous system; I10 Essential (primary) hypertension; F10.20 Alcohol dependence, uncomplicated; E87.1 Hypo-osmolality and hyponatremia; I21.A1 Myocardial infarction type 2; J18.9 Pneumonia, unspecified organism; N39.0 Urinary tract infection, site not specified; E87.6 Hypokalemia; K57.30 Diverticulosis of large intestine without perforation or abscess without bleeding; L30.8 Other specified dermatitis; R19.01 Right upper quadrant abdominal swelling, mass and lump; Y90.0 Blood alcohol level of less than 20 mg/100 ml; R74.01 Elevation of levels of liver transaminase levels; R91.1 Solitary pulmonary nodule; I25.2 Old myocardial infarction
CPT/HCPCS: 36415; 71045; 71260; 73560; 73590; 73700; 74176; 74177; 76770; 80048; 80051; 80053; 80202; 80305; 80320; 81003; 82105; 82140; 82378; 82550; 82962; 83605; 83735; 84100; 84132; 84145; 84443; 84484; 84550; 85014; 85018; 85025; 85027; 85651; 86141; 86304; 86850; 86900; 86920; 87077; 87186; 93005; 93306; 93970; 97110; 97161; 97166; 97530; 97535; 99291; A4606; J0456; J0696; J1160; J1308; J1650; J2003; J2060; J2270; J2470; J2543; J3373; J3411; J3486; J3490; J7030; J7060; P9016; Q9967; A5200; G0480